=== PATIENT | male | born 1965 | race Caucasian/White ===

== ENCOUNTER 2019-02-20 10:22 | Inpatient (IN) | payer BC ==
[~2019-02-20] VITALS: Ht 182.9 cm; Wt 133.0 kg
[2019-02-20 10:25] VITALS: BP 169/101
[2019-02-20] MEDS ORDERED: METFORMIN HCL500 MG PO (10:28)
[2019-02-20 11:03] LABS: HEMATOCRIT 39.1 % (42.0-52.0); HEMOGLOBIN 13.1 gm/dL (14.0-18.0); MCH 27.9 pg (26.0-34.0); MCHC 33.6 g/dL (28.0-37.0); MCV 83.1 fL (80.0-100.0); PLATELET COUNT 186 thou/uL (150-400); RBC 4.71 mil/uL (4.50-6.00); WBC 4.8 thou/uL (4.0-11.0)
[2019-02-20 11:09] LABS: ANION GAP 10 mmol/L (7-16); BUN 12 mg/dL (7-18); CALCIUM 9.7 mg/dL (8.5-10.1); CHLORIDE 105 mmol/L (98-107); CO2 27 mmol/L (21-32); CREATININE 1.1 mg/dL (0.7-1.3); GLUCOSE 121 mg/dL (74-106); POTASSIUM 4.5 mmol/L (3.5-5.1); SODIUM 142 mmol/L (136-145)
[2019-02-20 11:19] LABS: ALBUMIN 4.2 g/dL (3.4-5.0); MAGNESIUM 1.8 mg/dL (1.8-2.4); SGOT 19 U/L (15-37); SGPT 70 U/L (30-65); TOTAL BILIRUBIN 0.5 mg/dL (<0.1-1.0); TOTAL PROTEIN 8.1 g/dL (6.4-8.2); TROPONIN-I <0.06 ng/mL (<0.06)
[2019-02-20 11:31] LABS: BE(vivo) 0.1 mmol/L (-2 to +3); HCO3 20.7 mmol/L (22.0-26.0); PCO2 24.6 mmHg (35.0-45.0); PO2 98.3 mmHg (80.0-100.0); pH 7.542 (7.360-7.450); sO2 98.2 % (92.0-98.0)
[2019-02-20 11:45] LABS: ABSOLUTE NEUTROPHILS 2.5 thou/uL (1.4-8.2)
[2019-02-20 12:55] VITALS: BP 150/84
[2019-02-20 13:00] VITALS: BP 150/84
--- NOTE | 2019-02-20 13:10 | NUR ---
ATTEMPTED TO CALL REPORT; SRINIVAS MERINO, IS WITH AN END OF LIFE PATIENT AND WILL CALL ME BACK HILDA
[2019-02-20 14:12] LABS: URINE BILIRUBIN NEGATIVE (Negative); URINE BLOOD NEGATIVE (Negative); URINE CLARITY CLEAR; URINE COLOR YELLOW; URINE GLUCOSE-RANDOM* NEGATIVE (Negative); URINE KETONES 2+ (Negative); URINE LEUKOCYTES-REFLEX NEGATIVE (Negative); URINE NITRITE-REFLEX NEGATIVE (Negative); URINE PROTEIN (DIPSTICK) NEGATIVE (Negative); URINE SPECIFIC GRAVITY <= 1.005 (1.005-1.035); URINE UROBILINOGEN 0.2 E.U./dl (0.2-1.0)
[2019-02-20 14:21] VITALS: BP 167/105
[2019-02-20 14:22] LABS: AMP/METHAMP Negative (Negative); BARBITURATES Negative (Negative); BENZODIAZEPINES Negative (Negative); COCAINE Negative (Negative); METHADONE Negative (Negative); OPIATES Negative (Negative); PCP Negative (Negative)
[2019-02-20 15:45] VITALS: BP 151/96
--- NOTE | 2019-02-20 18:02 | NUR ---
VSS REMAINS NSR WITH 3 PERIODS OF PAUSES WHERE THERE ARE P WAVES WITH NO VENTRICLAR CONDUCTION , PT NOTICES PALPITATIONS WHEN THIS OCCURS AND GETS SOB, NO FURTHER SYNCOPE. LUNGS CLEAR RA SAT IS 07%. UP IN ROOM WITH SBA DUE TO SYNCOPE PRECAUTIONS. WILL CONTIUE TO MONITER AND CARE FOR PTPER PLAN OF CARE
[2019-02-20 19:39] VITALS: BP 148/99
--- NOTE | 2019-02-20 23:14 | H ---
[facility] [place] [address] HISTORY AND PHYSICAL Name: ROMERO STRICKLAND Room #: 211-P ADM IN M.R.#: [id number] Admission: 02/20/19 ������������������ Attend Phys: Miguel Ángel Toth MD Discharge: ������������������ Date of : 69 Report #: [id number] THIS REPORT FOR: //name// CC: Miguel Ángel Toth [facility] unknown DATE OF SERVICE: 02/20/2019 HISTORY OF PRESENT ILLNESS: A 53-year-old gentleman who presented to the Emergency Room after having episode of syncope. The patient states he has been having these brief episodes of unusual sensation in his chest for over a year. He states that these episodes come suddenly. They are not associated with any type of activity or dietary habits. He states he feels short of breath abruptly and feels an unusual sensation in his chest as if his heart is slow. He states he notes this because his pulse becomes more prominent before and after these episodes. They tend to last only a few minutes or seconds at most. On the day of admission, he had an episode where he actually lost consciousness for about 2 minutes as described by his spouse. He denies any significant orthopnea, PND, syncope or near syncope. Denies any significant exertional chest pain, pressure, tightness or heaviness. He does have sleep apnea and is now being evaluated for this. He states he has been told in the past that he had a long QT syndrome, although denies having any recent electrocardiogram. He was never told anything else from that. He has no orthopnea or PND. No dependent or nondependent edema. ALLERGIES: SHELLFISH, WHICH STATES CAUSES CHEST PAINS AND CODEINE, WHICH CAUSES NAUSEA AND VOMITING. LAB DATA: Significant for potassium 4.5, H and H 13.1 and 39.1. TSH of 3.3. MEDICATIONS: Metformin. PAST MEDICAL HISTORY: Significant for: 1. Diabetes mellitus, diet controlled. 2. Hypertension. 3. Sleep apnea syndrome. 4. Asthma. PAST SURGICAL HISTORY: Significant for no major surgical procedures. SOCIAL HISTORY: The patient is . Does not smoke or consume alcohol. Does not follow a particular exercise regimen or dietary restriction. REVIEW OF SYSTEMS: Except for symptoms previously mentioned and those commensurate with comorbid state, the 10-point review of system is negative. [address] [address] HISTORY AND PHYSICAL Name: ROMERO STRICKLAND Room #: [facility] IN M.R.#: [id number] Admission: 02/20/19 ������������������ Attend Phys: Miguel Ángel Toth MD Discharge: ������������������ Date of : 69 Report #: [id number] ELECTROCARDIOGRAM: Normal sinus rhythm, nonspecific ST-T wave changes. Monitoring: Evidence of AV block present with his sudden loss of conduction to the ventricle. This occurred during symptoms. PHYSICAL EXAMINATION: GENERAL: Well-developed, well-nourished male, resting comfortably in no acute distress. VITAL SIGNS: Noted and reviewed in the chart. HEENT: Normocephalic, atraumatic. Pupils are equal, round, reactive to light and accommodation. Extraocular muscles are intact. Sclerae and conjunctivae are anicteric. NECK: JVD is normal. Carotid upstrokes are bilaterally symmetrical. No bruits are heard. No thyromegaly. No lymphadenopathy. LUNGS: Clear to auscultation. No wheezes, rhonchi or crackles. No CVA tenderness. CARDIAC: Demonstrates a regular rhythm. Normal first and second heart sounds. No ventricular or atrial gallops, no rubs noted. No murmurs. No lifts or heaves, PMI normal. ABDOMEN: Soft, nontender, nondistended. Normal bowel sounds. EXTREMITIES: Without cyanosis, clubbing or edema. Distal pulses are intact. DTR symmetrical. NEUROLOGIC: Cranial nerves 2-12 are grossly normal and symmetrical. PSYCHIATRIC: Alert, oriented with normal affect. SKIN: Warm and dry. IMPRESSION: 1. Syncope with what appears to be an AV block. His thyroid is, had a TSH of 3.3, which is still within the normal range, but I am going to get a T4 just to verify that we are not dealing with significantly decreased findings. In addition to this, I am going to get 2D echo Doppler to rule out any structural abnormalities in this individual. He likely will need to get a permanent pacing in the absence of any other indications. 2. Diabetes mellitus. We will need to monitor glucose to make sure that it is under control on the current regimen. I did discuss the [place] diet, which is combination of the [place] [employer] and [place] [employer]'s recommendations for diet. 3. Hypertension. Uncertain how well controlled it is. We will monitor closely and then discharge. We will also monitor more fully at that time. [address] [address] HISTORY AND PHYSICAL Name: ROMERO STRICKLAND Room #: 211-P ADM IN M.R.#: [id number] Admission: 02/20/19 ������������������ Attend Phys: Miguel Ángel Toth MD Discharge: ������������������ Date of : 69 Report #: [id number] Thank you very much. ��������������������������������������������� <ELECTRONICALLY SIGNED> ���������������������������������������� By: Rocky Elliott MD ��������������������������������������������� 02/20/19 2314 2219 2301 Rocky Elliott MD /nt
--- NOTE | 2019-02-20 23:58 | EKG ---
[address] [address] ELECTROCARDIOGRAM REPORT Name: ROMERO STRICKLAND Room #: 211-P ADM IN M.R.#: [id number] ������������������ Admission: 02/20/19 ������������������ Attend Phys: Miguel Ángel Toth MD Discharge: ������������������ Date of : 69 Report #: [id number] ����������������������������������������������������������������� [id number] THIS REPORT FOR: //name// [facility] ED Test Date: 2019-02-20 Test Time: 10:41:40 Pat Name: ROMERO STRICKLAND Department: Room: 211 Gender: M Media Marketing Manager: CLAUDIA : 1965 Requested By: Ramon Cannon Order Number: [id number] MD: Rocky Elliott Measurements Intervals [place] Rate: 78 P: 43 [place]: 190 QRS: 23 QRSD: 78 T: 46 QT: 528 QTc: 602 Interpretive Statements Sinus rhythm nonspecific st/t wave changes No previous ECG available for comparison Electronically Signed On 02-20-2019 23:58:06 CDT by Rocky Elliott [email or web address] ��������������������������������������������� <ELECTRONICALLY SIGNED> ���������������������������������������� By: Rocky Elliott MD ��������������������������������������������� 02/20/19 2358 1041 1041 Rocky Elliott MD /RAS
--- NOTE | 2019-02-21 00:03 | EKG ---
[address] [address] ELECTROCARDIOGRAM REPORT Name: ROMERO STRICKLAND Room #: 211-P ADM IN M.R.#: [id number] ������������������ Admission: 02/20/19 ������������������ Attend Phys: Miguel Ángel Toth MD Discharge: ������������������ Date of : 69 Report #: [id number] ����������������������������������������������������������������� [id number] THIS REPORT FOR: //name// [facility] Test Date: 2019-02-20 Test Time: 15:34:51 Pat Name: ROMERO STRICKLAND Department: Room: 211 P Gender: M Geriatric Assistant: HAILEY : 1965 Requested By: Rocky Elliott Order Number: [id number] MD: Rocky Elliott Measurements Intervals [place] Rate: 72 P: 49 IN: 196 QRS: 42 QRSD: 94 T: 41 QT: 418 QTc: 458 Interpretive Statements Sinus rhythm early transition nonspecific st/t wave abnormalities No previous ECG available for comparison Electronically Signed On 02-21-2019 0:02:49 CDT by Rocky Elliott [email or web address] ��������������������������������������������� <ELECTRONICALLY SIGNED> ���������������������������������������� By: Rocky Elliott MD ��������������������������������������������� 02/21/19 0002 1534 1534 Rocky Elliott MD /RAS
[2019-02-21 00:04] VITALS: BP 135/80
[2019-02-21 03:24] LABS: CALCIUM 9.7 mg/dL (8.5-10.1); CREATININE 0.8 mg/dL (0.7-1.3); POTASSIUM 4.7 mmol/L (3.5-5.1)
[2019-02-21 04:45] VITALS: BP 142/105
--- NOTE | 2019-02-21 05:53 | NUR ---
PATIENT AO X4. CONCERNED ABOUT PACEMAKER PLACEMENT. PATIENT HAD 3 EPISODES OF VENTRICULAR DISSOCIATION. REPORTS FEELING SLIGHT DIZZINESS DURING THIS EPISODES. NO ACTIVE SYNCOPY EPISODE WITNESSED DURING THE NIGHT. REPORTS HEADACHE. ALLEVIATED WITH TYLENOL. NO FURTHER COMPLAINS AT THIS TIME. VITALS STABLE. PATIENT APPEAR ANGRY THIS MORNING DURING CLEANCING. NO KNOWN CAUSE. WILL CONTINUE TO FOLLOW PLAN OF CARE.
[2019-02-21 07:55] VITALS: BP 148/87
--- NOTE | 2019-02-21 09:16 | 2DMMODE ---
[facility] [address] [place] [address] 2 D/M-MODE ECHOCARDIOGRAM Name: ROMERO STRICKLAND Room #: 211-P ADM IN M.R.#: [id number] ������������� Admission: 02/20/19 ������������� Attend Phys: Miguel Ángel Toth MD Discharge: ��� ������������� ��� Date of : 69 Date of Service: 02/21/19 0916 �� Report #: [id number] �������� ��������������������������������������������[id number] THIS REPORT FOR: //name// APPROVED REPORT Study performed: 02/21/2019 08:43:23 EXAM: Comprehensive 2D, Doppler, and color-flow Echocardiogram Patient Location: Echo lab Room #: [facility] Status: routine BSA: 2.51 HR: 79 bpm BP: 142/105 mmHg Rhythm: NSR Other Information Study Quality: Adequate Indications Diabetes Hypertension/HDD 2D Dimensions IVSd: 14.37 (7-11mm) LVOT Diam: 25.44 (18-24mm) LVDd: 48.82 mm PWd: 13.87 (7-11mm) Ascending Ao: 34.38 (22-36mm) LVDs: 32.42 (25-40mm) Aortic Root: 36.00 mm IVC: 17.00 mm Volumes Left Atrial Volume (Systole) Single Plane 4CH: 48.79 mL Single Plane 2CH: 61.13 mL LA ESV Index: 24.00 mL/m2 Aortic Valve AoV Peak Geronimo.: 1.10 m/s AO Peak Gr.: 4.81 mmHg LVOT Max P.84 mmHg LVOT Max V: 0.84 m/s ALLA Vmax: 3.90 cm2 Mitral Valve E/A Ratio: 0.9 MV Decel. Time: 215.74 ms MV E Max Geronimo.: 0.66 m/s [facility] [address] [place] [address] 2 D/M-MODE ECHOCARDIOGRAM Name: ROMERO STRICKLAND Room #: 211-P [facility] IN ..#: [id number] ������������� Admission: 02/20/19 ������������� Attend Phys: Miguel Ángel Toth MD Discharge: ��� ������������� ��� Date of : 69 Date of Service: 02/21/19 0916 �� Report #: [id number] �������� ��������������������������������������������[id number] MV A Geronimo.: 0.75 m/s MV PHT: 62.56 ms IVRT: 119.95 ms Pulmonary Valve PV Peak Geronimo.: 1.05 m/s PV Peak Gr.: 4.42 mmHg Pulmonary Vein P Vein S: 0.30 m/s P Vein A: 0.28 m/s P Vein D: 0.21 m/s P Vein A Dur.: 101.5 msec P Vein S/D Ratio: 1.43 Left Ventricle The left ventricle is normal size. There is normal LV segmental wall motion. Mild concentric left ventricular hypertrophy. The left ventricular systolic function is normal. The left ventricular ejection fraction is within the normal range. LVEF is 60-65%. Mild diastolic dysfunction is present (impaired relaxation pattern). Right Ventricle The right ventricle is normal size. The right ventricular systolic function is normal. Atria The left atrium size is normal. The right atrium size is normal. Aortic Valve The aortic valve is normal in structure. No aortic regurgitation is present. There is no aortic valvular stenosis. Mitral Valve The mitral valve is normal in structure. There is no mitral valve regurgitation noted. No evidence of mitral valve stenosis. Tricuspid Valve The tricuspid valve is normal in structure. There is no tricuspid valve regurgitation noted. Pulmonic Valve The pulmonary valve is normal in structure. There is no pulmonic valvular regurgitation. Great Vessels The aortic root is normal in size. IVC is normal in size and [address] [address] 2 D/M-MODE ECHOCARDIOGRAM Name: ROMERO STRICKLAND Room #: 211-P ADM IN M.R.#: [id number] ������������� Admission: 02/20/19 ������������� Attend Phys: Miguel Ángel Toth MD Discharge: ��� ������������� ��� Date of : 69 Date of Service: 02/21/19 0916 �� Report #: [id number] �������� ��������������������������������������������[id number] collapses >50% with inspiration. Pericardium There is no pericardial effusion. <Conclusion> The left ventricular systolic function is normal. There is normal LV segmental wall motion. LVEF is 60-65%. Mild diastolic dysfunction The aortic valve is normal in structure. No aortic regurgitationor stenosis The mitral valve is normal in structure. No mitral valve regurgitation Pulmonary artery pressure could not be reliably ascertained There is no pericardial effusion. ��������������������������������������������� <ELECTRONICALLY SIGNED> ���������������������������������������� By: Claus Yarbrough MD, FACC ��������������������������������������������� 02/21/19915 5 5 Claus Yarbrough MD, FACC /INF
[2019-02-21 11:55] VITALS: BP 157/90
[2019-02-21 15:50] VITALS: BP 135/86
--- NOTE | 2019-02-21 17:04 | NUR ---
VSS REMAINS NSR WITH 4 PERIODS TODAY OF P WAVES WITH NO CONDUCTION, PAUSES 2-3 SEC, PT NOT SYNCOPAL, FEELS PALPITATIONS aT TIMES, LUNGS CLEAR. RA SAT 99%. PT AWARE NPO PAST [place] FOR PACEMAKER IN AM UNDER GENERAL ANESTHESIA. WILL CONTINUE TO MONITER AND CARE FOR PTPER PLAN OF CARE
[2019-02-21 19:49] VITALS: BP 139/86
[2019-02-22] VITALS (9 sets, daily range): BP systolic 122–148; BP diastolic 76–91
[2019-02-22 01:05] LABS: GLYCOHEMOGLOBIN (HGB A1C) 6.7 % (4.8-5.6)
--- NOTE | 2019-02-22 05:39 | NUR ---
PT SCHUDULED FOR PACEMAKER PLACEMENT TODAY. PT WAS NPO SINCE MIDNIGHT. NO EPISODES OF AV DISOCIATION NOTED DURING THE NIGHT. PT TOOK A SHOWER. NO PAIN REPORTED. VITALS STABLE. ALERT AND ORIENTED. WILL CONTINUE TO MONITOR.
--- NOTE | 2019-02-22 18:17 | NUR ---
ASSESSMENT DOCUMENTED. PT ALERT AND ORIENTED. VSS. HAD PACEMAKER PLACEMENT THIS AM. PACEMAKER SURGICAL INCISION C/D/I. NO HEMATOMA NOTED. IMMOBILIZER IN PLACE. NO CONCERNS AT THIS TIME. WILL CONTINUE TO MONITOR.
[2019-02-23] VITALS (8 sets, daily range): BP systolic 128–135; BP diastolic 66–87
--- NOTE | 2019-02-23 02:57 | NUR ---
ASSUMED PT CARE AT 1900. PT A/OX4, VITAL SIGNS STYABLE, ASSESSMENT CHARTED. PT COMPLAINED OFHEAD AND SHOULDER PAIN. NO COMPLAINTS OF CHEST PAIN OR SOA. PAIN ADEQAUTELY MANAGED WITH PAIN MEDICATION. ABOUT 30MINS AFTER TRAMADOL WAS GIVEN, PT HAD AN EPISODE OF DIZZINESS AND NAUSEA, VITALS CHECKED AND WITHIN NORMAL LIMITS. PT REQUESTED THAT WE WAIT A LITTLE WHILE TO SEE IF SYMPTOMS WILL PASS. ABOUT 15MINS LATER, PT CHECKED AND VERBALIZED SYMPTOMS HAD RESOLVED. HOURLY ROUNDING COMPLETED. PACEMAKER SITE CLEAN,DRY, INTACT. NO HEMATOMA. PT RESTED WELL THROUGH THE NIGHT. PROGRESSING TOWARD PLAN OF CARE. WILL CONTINUE TO MONITOR.
[2019-02-23 04:17] LABS: CHOLESTEROL 221 mg/dL (<200); HDL CHOLESTEROL 29 mg/dL (>40); LDL CHOLESTEROL 175 mg/dL (<100); TC:HDL 7.6 Ratio (Not establshd); TRIGLYCERIDE 88 mg/dL (<150); VLDL 18 mg/dL (<40)
[2019-02-23 04:27] LABS: SERUM ASSESSMENT Clear
[2019-02-23 08:05] LABS: HEMOGLOBIN 14.8 gm/dL (14.0-18.0); MCH 27.7 pg (26.0-34.0); MCHC 32.8 g/dL (28.0-37.0); MCV 84.4 fL (80.0-100.0); RBC 5.33 mil/uL (4.50-6.00); RDW 14.7 % (10.5-14.5); WBC 11.7 thou/uL (4.0-11.0)
[2019-02-23 08:11] LABS: CALCIUM 9.4 mg/dL (8.5-10.1); CREATININE 1.2 mg/dL (0.7-1.3); MAGNESIUM 2.2 mg/dL (1.8-2.4); POTASSIUM 4.9 mmol/L (3.5-5.1)
[2019-02-23] MEDS ORDERED: CRESTOR40 MG PO (08:42)
--- NOTE | 2019-02-23 09:01 | EKG ---
[address] [address] ELECTROCARDIOGRAM REPORT Name: ROMERO STRICKLAND Room #: 211-P ADM IN M.R.#: [id number] ������������������ Admission: 02/20/19 ������������������ Attend Phys: Miguel Ángel Toth MD Discharge: ������������������ Date of : [birth year] Report #: [id number] ����������������������������������������������������������������� [id number] THIS REPORT FOR: //name// [facility] Test Date: 2019-02-23 Test Time: 07:11:41 Pat Name: ROMERO STRICKLAND Department: Room: 211 P Gender: M Orthodontic Laboratory Technician: ZAIDA : 1965 Requested By: Cade Castro Order Number: [id number] MD: Cade Castro Measurements Intervals [place] Rate: 68 P: 9 MI: 170 QRS: 26 QRSD: 92 T: 2 QT: 398 QTc: 424 Interpretive Statements Sinus rhythm Consider anterior infarct Borderline T abnormalities, inferior leads Compared to ECG 02/20/2019 15:34:51 Myocardial infarct finding now present T-wave abnormality now present Electronically Signed On 02-23-2019 9:01:28 CDT by Cade Castro [email or web address] ��������������������������������������������� <ELECTRONICALLY SIGNED> ���������������������������������������� By: Cade Castro MD ��������������������������������������������� 02/23/1901 0 0 Cade Castro MD /EPI
[2019-02-23 09:10] LABS: HBsAG-EMPLOYEE EXPOSURE Negative (Negative); HCV AB-EMPLOYEE EXPOSURE 0.2 (0.0-0.9)
[2019-02-23] MEDS ORDERED: TYLENOL325 MG PO (12:42)
--- NOTE | 2019-02-23 16:12 | NUR ---
ASSESSMENT DOCUMENTED. PT ALERT AND ORIENTED. VSS. PACEMAKER SURGICAL INCISION C/D/I. NO HEMATOMA NOTED. PRN PAIN MED GIVEN ORDERED. ORDERS GIVEN TO DISCHARGE PT TO HOME. DISCHARGE INSTRUCTIONS GIVEN TO PT. PT VERBERLIZE UNDERSTANDING.
--- NOTE | 2019-03-07 14:32 | P ---
[facility] [place] [address] PROCEDURE REPORT Name: ROMERO STRICKLAND Room #: 211-P [facility] IN M.R.#: [id number] Admission: 02/20/19 ������������������ Attend Phys: Miguel Ángel Toth MD Discharge: 02/23/19 ������������������ Date of : 69 Report #: [id number] THIS REPORT FOR: //name// CC: Miguel Ángel LINARES unknown PROCEDURE: Pacemaker implantation. PREOPERATIVE DIAGNOSES: 1. Complete heart block. 2. Syncope. HISTORY: The patient is a 53-year-old presenting to the hospital with recurrent syncopal episodes and was found to have periods of transient complete heart block. He is here for a dual chamber pacemaker implantation. ANESTHESIA: The patient underwent MAC anesthesia with no anesthesia related complications. DESCRIPTION OF PROCEDURE: The patient underwent informed consent. We discussed the details of the procedure including the risks, which include but not limited to bleeding, infection, vascular damage, cardiac perforation, pneumothorax. He understood these risks and is willing to proceed. The patient was brought to EP laboratory in a fasting and sedated state, prepped and draped in a sterile fashion and underwent a venogram showing patency of the left axillary vein. He received IV antibiotics prior to initiation of the procedure. Next, I injected lidocaine below the level of clavicle. Incision was made, pocket was created over the prepectoral fascia and access was obtained twice to left axillary vein using the extrathoracic approach. Next, sheaths were positioned using the modified Seldinger technique and leads were positioned in the right ventricular apex and right atrial appendage both with adequate pacing and sensing thresholds. The leads were connected, the device placed in the pocket and then, the pocket was closed in three layers using 2-0 for the deep layer, 3-0 for the mid layer and 4-0 for the subcuticular layer. Surgical glue was placed to the outer skin layer. The patient awoke neurologically and hemodynamically intact with no complications and no significant bleeding. The implanted pacemaker was a [employer], model # QC0005, serial #[id number]. The atrial lead was a [employer] model #2088TC, serial #[id number]. RV lead was a [employer] model #2088, serial #[id number]. The atrial lead demonstrated a P-wave of greater than 5 millivolts, pacing impedance of 490 ohms and a pacing threshold of 1 volt at 0.4 milliseconds. RV lead demonstrated R-wave of 7.8 millivolts, pacing impedance of 660 ohms and the pacing threshold 0.5 volts at 0.4 milliseconds. The device was programmed to DDD 60-140 mode. [facility] [address] [place] [address] PROCEDURE REPORT Name: ROMERO STRICKLAND Room #: 211-P [facility] IN M.R.#: [id number] Admission: 02/20/19 ������������������ Attend Phys: Miguel Ángel Toth MD Discharge: 02/23/19 ������������������ Date of : 69 Report #: [id number] CONCLUSIONS: 1. Successful dual-chamber pacemaker implantation. 2. Satisfactory atrial and ventricular pacing and sensing thresholds. ��������������������������������������������� <ELECTRONICALLY SIGNED> ���������������������������������������� By: Cade Castro MD ��������������������������������������������� 03/07/19 1432 1324 0703 Cade Castro MD /nt
== END 2019-02-23 16:16 | disposition home or self-care (01) | DRG 242 ==
LOC: ER 10:22 → 2N 12:32 → EROBS 12:32 → 2N 13:10 → ENTRNSPT 02-23 16:08 → 2N 02-23 16:16
PROVIDERS: Internal Medicine; Internal Medicine Cardiovascular Disease; Nurse Practitioner; Physician Assistant; ADMIT Hospitalist
PROC: 02H63JZ Insertion of Pacemaker Lead into Right Atrium, Percutaneous Approach (ICD-10-PCS; principal; 2019-02-22)
PROC: 0JH606Z Insertion of Pacemaker, Dual Chamber into Chest Subcutaneous Tissue and Fascia, Open Approach (ICD-10-PCS; principal; 2019-02-22)
PROC: 02HK3JZ Insertion of Pacemaker Lead into Right Ventricle, Percutaneous Approach (ICD-10-PCS; principal; 2019-02-22)
DX: I44.30 Unspecified atrioventricular block (principal); N17.0 Acute kidney failure with tubular necrosis; G47.33 Obstructive sleep apnea (adult) (pediatric); I49.5 Sick sinus syndrome; E78.5 Hyperlipidemia, unspecified; K08.409 Partial loss of teeth, unspecified cause, unspecified class; E66.9 Obesity, unspecified; E11.9 Type 2 diabetes mellitus without complications; I10 Essential (primary) hypertension; J45.909 Unspecified asthma, uncomplicated; Z88.6 Allergy status to analgesic agent; Z91.013 Allergy to seafood; Z82.49 Family history of ischemic heart disease and other diseases of the circulatory system; Z68.39 Body mass index [BMI] 39.0-39.9, adult; Z79.899 Other long term (current) drug therapy
CPT/HCPCS: 10081; 62110; 62900; 70005

== ENCOUNTER → 2019-02-24 | Outpatient (CLI) | payer BC ==
[~2019-02-24] MED LIST: CRESTOR40 MG PO; METFORMIN HCL500 MG PO; TYLENOL325 MG PO
== END ==
LOC: RAD 12:24
DX: R06.00 Dyspnea, unspecified (principal); Z88.5 Allergy status to narcotic agent; Z95.0 Presence of cardiac pacemaker

== ENCOUNTER → 2019-03-01 | Outpatient (CLI) | payer BC ==
--- NOTE | 2019-03-01 16:43 | 2DMMODE ---
[facility] [place] [address] 2 D/M-MODE ECHOCARDIOGRAM Name: ROMERO STRICKLAND Room #: REG [facility]#: [id number] ������������� Admission: 03/01/19 ������������� Attend Phys: Cade Castro Discharge: ��� ������������� ��� Date of : 69 Date of Service: 03/01/19 1643 �� Report #: [id number] �������� ��������������������������������������������[id number] THIS REPORT FOR: //name// APPROVED REPORT Study performed: 03/01/2019 14:15:33 EXAM: Comprehensive 2D, Doppler, and color-flow Echocardiogram Patient Location: Out-Patient Room #: Echo lab 2 Status: routine BSA: 2.51 HR: 69 bpm BP: 138/88 mmHg Rhythm: NSR Other Information Study Quality: Adequate Indications Pacemaker SP PPM, RO Effusion. Tricuspid Valve TR Peak Geronimo.: 2.29 m/s TR Peak Gr.: 21.03 mmHg PA Pressure: 26.00 mmHg Left Ventricle The left ventricle is normal size. There is normal LV segmental wall motion. There is normal left ventricular wall thickness. The left ventricular systolic function is normal. The left ventricular ejection fraction is within the normal range. LVEF is 60-65%. Right Ventricle The right ventricle is normal size. The right ventricular systolic function is normal. Pacemaker lead is present in the right ventricle. Atria The left atrium size is normal. The right atrium size is normal. Aortic Valve The aortic valve is normal in structure. No aortic regurgitation is present. There is no aortic valvular stenosis. [facility] [address] [address] 2 D/M-MODE ECHOCARDIOGRAM Name: ROMERO STRICKLAND Room #: REG [facility].#: [id number] ������������� Admission: 03/01/19 ������������� Attend Phys: [facility] Discharge: ��� ������������� ��� Date of : 69 Date of Service: 03/01/191642 �� Report #: [id number] �������� ��������������������������������������������[id number] Mitral Valve The mitral valve is normal in structure. Tricuspid Valve The tricuspid valve is normal in structure. There is trace tricuspid regurgitation. Estimated PAP 26 mmHg. There is no pulmonary hypertension. Pulmonic Valve The pulmonary valve is normal in structure. Great Vessels The aortic root is normal in size. IVC is normal in size and collapses >50% with inspiration. Pericardium There is no pericardial effusion. <Conclusion> Limited study The left ventricular systolic function is normal. LVEF is 60-65%. Pacemaker lead is present in the right ventricle. There is no pericardial effusion. ��������������������������������������������� <ELECTRONICALLY SIGNED> ���������������������������������������� By: Claus Yarbrough MD, [facility] ��������������������������������������������� 03/01/191642 42 42 Claus Yarbrough MD, FACC /INF
== END ==
LOC: CV 11:49
DX: R06.00 Dyspnea, unspecified (principal); Z95.0 Presence of cardiac pacemaker

== ENCOUNTER 2019-03-10 21:49 | Emergency (ER) | payer BC ==
[~2019-03-10] VITALS: Ht 182.9 cm; Wt 134.7 kg
[2019-03-10 22:31] LABS: ABSOLUTE NEUTROPHILS 5.4 thou/uL (1.4-8.2); BASOPHILS 0.8 % (0.0-2.0); EOSINOPHILS 1.7 % (0.0-3.0); HEMATOCRIT 43.7 % (42.0-52.0); HEMOGLOBIN 14.8 gm/dL (14.0-18.0); LYMPHOCYTES 18.3 % (24.0-44.0); MCH 27.8 pg (26.0-34.0); MCHC 33.8 g/dL (28.0-37.0); MCV 82.2 fL (80.0-100.0); MONOCYTES 11.4 % (1.0-8.0); PLATELET COUNT 209 thou/uL (150-400); POLYS 67.8 % (36.0-66.0); RBC 5.31 mil/uL (4.50-6.00); RDW 14.3 % (10.5-14.5); WBC 7.9 thou/uL (4.0-11.0)
[2019-03-10 22:35] LABS: ANION GAP 11 mmol/L (7-16); BUN 15 mg/dL (7-18); CALCIUM 9.7 mg/dL (8.5-10.1); CHLORIDE 102 mmol/L (98-107); CO2 25 mmol/L (21-32); CREATININE 1.1 mg/dL (0.7-1.3); GLUCOSE 124 mg/dL (74-106); POTASSIUM 3.5 mmol/L (3.5-5.1); SODIUM 138 mmol/L (136-145)
[2019-03-10 22:43] LABS: TROPONIN-I <0.06 ng/mL (<0.06)
[2019-03-11 00:44] VITALS: BP 154/86
--- NOTE | 2019-03-11 07:09 | EKG ---
[address] [place] [address] ELECTROCARDIOGRAM REPORT Name: ROMERO STRICKLAND Room #: [facility]#: [id number] ������������������ Admission: 03/10/19 ������������������ Attend Phys: Discharge: 03/11/19 ������������������ Date of : 69 Report #: [id number] ����������������������������������������������������������������� [id number] THIS REPORT FOR: //name// [facility] ED Test Date: 2019-03-10 Test Time: 22:07:47 Pat Name: ROMERO STRICKLAND Department: Room: Gender: M Vacuum Pan Tender: keyana : 1965 Requested By: Andrea Reyes Order Number: [id number] MD: Cade Castro Measurements Intervals [place] Rate: 84 P: 22 ME: 179 QRS: 6 QRSD: 91 T: -2 QT: 374 QTc: 443 Interpretive Statements Sinus rhythm Borderline T abnormalities, anterior leads Compared to ECG 02/23/2019 07:11:41 Myocardial infarct finding no longer present T-wave abnormality still present Electronically Signed On 03-11-2019 7:09:26 CDT by Cade Castro [email or web address] ��������������������������������������������� <ELECTRONICALLY SIGNED> ���������������������������������������� By: Cade Castro MD ��������������������������������������������� 03/11/1909 06 06 Cade Castro MD /RAS
== END 2019-03-11 00:45 | disposition home or self-care (01) ==
LOC: ER 21:49
PROVIDERS: Nurse Practitioner
DX: R06.02 Shortness of breath (principal); M79.602 Pain in left arm; R20.2 Paresthesia of skin; E11.9 Type 2 diabetes mellitus without complications; J45.909 Unspecified asthma, uncomplicated; E78.00 Pure hypercholesterolemia, unspecified; Z88.5 Allergy status to narcotic agent; Z91.013 Allergy to seafood

== ENCOUNTER → 2019-03-25 | Outpatient (CLI) | payer BC ==
--- NOTE | 2019-03-25 14:07 | 2DMMODE ---
[facility] [place] [address] 2 D/M-MODE ECHOCARDIOGRAM Name: ROMERO STRICKLAND Room #: REG [facility]#: [id number] ������������� Admission: 03/25/19 ������������� Attend Phys: Cade Castro Discharge: ��� ������������� ��� Date of : 69 Date of Service: 03/25/19 1407 �� Report #: [id number] �������� ��������������������������������������������[id number] THIS REPORT FOR: //name// APPROVED REPORT Study performed: 03/25/2019 13:07:17 EXAM: Comprehensive 2D, Doppler, and color-flow Echocardiogram Patient Location: Out-Patient Room #: Echo lab 2 Status: routine BSA: 2.49 HR: 71 bpm BP: 148/90 mmHg Rhythm: NSR Other Information Study Quality: Good Indications Diabetes Pacemaker Hypertension/HDD Left Ventricle The left ventricle is normal size. There is normal LV segmental wall motion. Mild concentric left ventricular hypertrophy. The left ventricular systolic function is normal. The left ventricular ejection fraction is within the normal range. LVEF is 55-60%. Right Ventricle The right ventricle is normal size. The right ventricular systolic function is normal. Pacemaker lead is present in the right ventricle. Atria The left atrium size is normal. The right atrium size is normal. Pacemaker lead is present in the right atrium. Aortic Valve The aortic valve is normal in structure. No aortic regurgitation is present. Mitral Valve The mitral valve is normal in structure. There is no mitral valve [facility] [address] [place] [address] 2 D/M-MODE ECHOCARDIOGRAM Name: ROMERO STRICKLAND Room #: REG [facility].#: [id number] ������������� Admission: 03/25/19 ������������� Attend Phys: Cade Castro Discharge: ��� ������������� ��� Date of : 69 Date of Service: 03/25/19 140 �� Report #: [id number] �������� ��������������������������������������������[id number] regurgitation noted. Tricuspid Valve The tricuspid valve is normal in structure. There is no tricuspid valve regurgitation noted. Pulmonic Valve The pulmonary valve is normal in structure. Great Vessels The aortic root is normal in size. IVC is normal in size and collapses >50% with inspiration. Pericardium There is no pericardial effusion. <Conclusion> The left ventricle is normal size. LVEF is 55-60%. Pacemaker lead is present in the right ventricle. The right atrium size is normal. Pacemaker lead is present in the right atrium. The aortic valve is normal in structure. The mitral valve is normal in structure. The tricuspid valve is normal in structure. The pulmonary valve is normal in structure. There is no pericardial effusion. ��������������������������������������������� <ELECTRONICALLY SIGNED> ���������������������������������������� By: Rocky Elliott MD ��������������������������������������������� 03/25/19 1407 06 1407 Rocky Elliott MD /INF
== END ==
LOC: CV 07:23
DX: R42 Dizziness and giddiness (principal); R55 Syncope and collapse; E11.9 Type 2 diabetes mellitus without complications; I10 Essential (primary) hypertension; Z95.0 Presence of cardiac pacemaker

== ENCOUNTER 2019-07-10 13:28 | Emergency (ER) | payer BC ==
[~2019-07-10] VITALS: Ht 180.3 cm; Wt 117.9 kg
[2019-07-10 14:03] LABS: HEMATOCRIT 44.8 % (42.0-52.0); MCH 28.1 pg (26.0-34.0); MCHC 33.5 g/dL (28.0-37.0); MCV 83.8 fL (80.0-100.0); PLATELET COUNT 256 thou/uL (150-400); RBC 5.35 mil/uL (4.50-6.00); RDW 15.1 % (10.5-14.5); WBC 4.5 thou/uL (4.0-11.0)
[2019-07-10 14:08] LABS: POTASSIUM 4.1 mmol/L (3.5-5.1)
[2019-07-10 14:09] LABS: URINE BILIRUBIN 1+ (Negative); URINE BLOOD NEGATIVE (Negative); URINE CLARITY CLEAR; URINE COLOR YELLOW; URINE GLUCOSE-RANDOM* NEGATIVE (Negative); URINE KETONES NEGATIVE (Negative); URINE LEUKOCYTES-REFLEX NEGATIVE (Negative); URINE NITRITE-REFLEX NEGATIVE (Negative); URINE PROTEIN (DIPSTICK) NEGATIVE (Negative); URINE UROBILINOGEN 0.2 E.U./dl (0.2-1.0)
[2019-07-10 14:14] LABS: ICTOTEST (BILI CONFIRMATORY) Positive (Negative)
[2019-07-10 14:19] LABS: ALBUMIN 4.1 g/dL (3.4-5.0); TOTAL BILIRUBIN 3.9 mg/dL (<0.1-1.0); TOTAL PROTEIN 8.3 g/dL (6.4-8.2)
[2019-07-10 14:56] LABS: ABSOLUTE NEUTROPHILS 2.1 thou/uL (1.4-8.2); ATYPICAL LYMPHS 1 %
[2019-07-10] MEDS ORDERED: ONDANSETRON HCL4 M2 PO (15:42)
[2019-07-10 16:51] VITALS: BP 121/76
--- NOTE | 2019-07-12 09:07 | EKG ---
[address] [place] [address] ELECTROCARDIOGRAM REPORT Name: MARCO AROMERO MADISON Room #: DEP [facility]#: [id number] Admission: 07/10/19 Attend Phys: Discharge: 07/10/19 Date of : 69 Report #: [id number] THIS REPORT FOR: //name// [facility] ED Test Date: 2019-07-10 Test Time: 15:59:22 Pat Name: ROMERO STRICKLAND Department: Room: Gender: M [facility] [employer] 1965 Requested By: Yuliana Franklin Order Number: [id number] MD: Cade Castro Measurements Intervals [place] Rate: 69 P: 29 CO: 191 QRS: -8 QRSD: 88 T: 19 QT: 388 QTc: 416 Interpretive Statements Sinus rhythm Left ventricular hypertrophy Borderline T abnormalities, anterior leads Baseline wander in lead(s) V1,V2 Compared to ECG 03/10/2019 22:07:47 Left ventricular hypertrophy now present T-wave abnormality still present Electronically Signed On 07-12-2019 9:07:06 CDT by Cade Castro [email or web address] <ELECTRONICALLY SIGNED> By: Cade Castro MD 07/12/19 0907 1559 1559 Cade Castro MD /EPI
[2019-07-12 16:11] LABS: HAV IgM AB (ANTI-HAV IgM) Negative (Negative); HEPATITIS B SURFACE AG Negative (Negative); HEPATITIS C VIRUS AB <0.1 (0.0-0.9)
== END 2019-07-10 16:52 | disposition home or self-care (01) ==
LOC: ER 13:28
PROVIDERS: Physician Assistant
DX: K21.9 Gastro-esophageal reflux disease without esophagitis (principal); E80.6 Other disorders of bilirubin metabolism; R74.0 Nonspecific elevation of levels of transaminase and lactic acid dehydrogenase [LDH]; R10.13 Epigastric pain; R10.11 Right upper quadrant pain; R11.0 Nausea; G47.30 Sleep apnea, unspecified; J45.909 Unspecified asthma, uncomplicated; E11.9 Type 2 diabetes mellitus without complications; E78.00 Pure hypercholesterolemia, unspecified; Z95.0 Presence of cardiac pacemaker; Z88.5 Allergy status to narcotic agent; Z91.041 Radiographic dye allergy status; Z91.013 Allergy to seafood

== ENCOUNTER → 2020-10-25 | Outpatient (CLI) | payer BC ==
[~2020-10-25] MED LIST changes: +ONDANSETRON HCL4 M2 PO
[2020-10-25 14:05] LABS: CREATININE 1.2 mg/dL (0.7-1.3)
== END ==
LOC: MRI 09:36
PROVIDERS: ATTEND Psychiatry & Neurology Neurology
DX: J34.1 Cyst and mucocele of nose and nasal sinus (principal); R20.2 Paresthesia of skin

== ENCOUNTER → 2021-08-22 | Outpatient (CLI) | payer BC | LOC: SJCVCIMAG 12:00 | PROVIDERS: ATTEND Internal Medicine Cardiovascular Disease | DX: I44.2 Atrioventricular block, complete (principal); E11.9 Type 2 diabetes mellitus without complications; R55 Syncope and collapse; E66.9 Obesity, unspecified; I10 Essential (primary) hypertension; I46.9 Cardiac arrest, cause unspecified; G47.30 Sleep apnea, unspecified; Z95.0 Presence of cardiac pacemaker; Z88.5 Allergy status to narcotic agent; Z79.84 Long term (current) use of oral hypoglycemic drugs; Z79.899 Other long term (current) drug therapy ==

== ENCOUNTER 2021-11-26 19:57 | Emergency (ER) | payer BC ==
[~2021-11-26] VITALS: Ht 177.8 cm; Wt 124.7 kg
[2021-11-27 06:12] VITALS: BP 152/100
== END 2021-11-26 23:00 | disposition home or self-care (01) ==
LOC: ER 19:57
DX: U07.1 COVID-19 (principal); E11.9 Type 2 diabetes mellitus without complications; J45.909 Unspecified asthma, uncomplicated; E78.00 Pure hypercholesterolemia, unspecified; Z79.899 Other long term (current) drug therapy; Z88.5 Allergy status to narcotic agent; Z91.041 Radiographic dye allergy status; Z91.013 Allergy to seafood